=== PATIENT | male | born 1975 | race American Indian/Alaskan Native ===

== ENCOUNTER 2017-10-20 17:52 | Emergency (ER) | payer SELFPAY ==
--- NOTE | 2017-10-20 18:24 | ED PDOC ---
Arrival/HPI - General Chief Complaint: Alcohol Ingestion Time Seen by Provider: 10/20/17 17:55 Historian: Patient - History of Present Illness Narrative History of Present Illness (Text): 10/20/17 18:21 A 42 year old male brought into the emergency department by EMS for alcohol intoxication. Patient states "I drank too much today". He denies any somatic complaints at this time. Patient denies any trauma, injury, fever, chills, nausea, vomiting, abdominal pain, chest pain, shortness of breath, suicidal ideation, homicidal ideation or any other complaints. Time/Duration: Prior to Arrival Past Medical History - Provider Review Nursing Documentation Reviewed: Yes - Infectious Disease Hx of Infectious Diseases: None - Psychiatric Hx Substance Use: No Family/Social History - Physician Review Nursing Documentation Reviewed: Yes Family/Social History: No Known Family HX Smoking Status: Light Smoker < 10 Cigarettes Daily Hx Alcohol Use: Yes Frequency of alcohol use: Socially Hx Substance Use: No Allergies/Home Meds Allergies/Adverse Reactions: Allergies No Known Allergies Allergy (Verified 10/20/17 18:00) Home Medications: Home Meds Medication Instructions Recorded Confirmed No Known Home Med 10/20/17 10/20/17 Review of Systems - Physician Review All systems were reviewed & negative as marked: Yes - Review of Systems Constitutional: Normal. absent: Fevers, Night Sweats Respiratory: absent: SOB Cardiovascular: absent: Chest Pain Gastrointestinal: absent: Abdominal Pain, Nausea, Vomiting Psychiatric: absent: Suicidal Ideation (/Homicidal ideation) Physical Exam Vital Signs Reviewed: Yes Vital Signs Temp Pulse Resp BP Pulse Ox 10/20/17 22:00 97.7 F 10/20/17 19:10 74 19 119/77 95 10/20/17 18:01 65 20 149/105 H 97 Temperature: Afebrile Blood Pressure: Hypertensive Pulse: Regular Respiratory Rate: Normal Appearance: Positive for: Comfortable, Other (Patient smells of alcohol) Pain Distress: None Mental Status: Positive for: Alert and Oriented X 3 Finger Stick Blood Glucose: 83 - Systems Exam Head: Present: Atraumatic, Normocephalic Pupils: Present: PERRL Extroacular Muscles: Present: EOMI Conjunctiva: Present: Normal Mouth: Present: Moist Mucous Membranes Neck: Present: Normal Range of Motion Respiratory/Chest: Present: Clear to Auscultation, Good Air Exchange. No: Respiratory Distress, Accessory Muscle Use Cardiovascular: Present: Regular Rate and Rhythm, Normal S1, S2. No: Murmurs Abdomen: Present: Normal Bowel Sounds. No: Tenderness, Distention, Peritoneal Signs Back: Present: Normal Inspection Upper Extremity: Present: Normal Inspection. No: Cyanosis, Edema Lower Extremity: Present: Normal Inspection. No: Edema Neurological: Present: GCS=15, CN II-XII Intact, Speech Normal Skin: Present: Warm, Dry, Normal Color. No: Rashes Psychiatric: Present: Alert, Oriented x 3, Normal Insight, Normal Concentration Medical Decision Making ED Course and Treatment: 10/20/17 18:21 Impression: A 42 year old male brought in for alcohol intoxication. Patient denies any complaints. Plan: -- Observe for sobriety -- Reassess and disposition Progress Notes: In emergency room patient has a finger stick of 83. Will monitor for sobriety. 10/20/17 21:56 Patient has been resting comfortably. He has no complaints. Will sign out to Dr. Harris to monitor for sobriety and reevaluate - Scribe Statement The provider has reviewed the documentation as recorded by the Scribe Paola Conn Provider Scribe Attestation: All medical record entries made by the Scribe were at my direction and personally dictated by me. I have reviewed the chart and agree that the record accurately reflects my personal performance of the history, physical exam, medical decision making, and the department course for this patient. I have also personally directed, reviewed, and agree with the discharge instructions and disposition. Disposition/Present on Arrival - Present on Arrival Any Indicators Present on Arrival: No History of DVT/PE: No History of Uncontrolled Diabetes: No Urinary Catheter: No History of Decub. Ulcer: No History Surgical Site Infection Following: None - Disposition Have Diagnosis and Disposition been Completed?: Yes Diagnosis: Alcohol abuse Disposition Time: 22:00 Patient Problems: Current Active Problems Problem Status Onset Alcohol abuse Acute Condition: FAIR Referrals: PCP,NO [Primary Care Provider] - Follow up with primary Forms: [employer] (Slovak)
[2017-10-20 22:00] VITALS: TEMP 97.7
--- NOTE | 2017-10-20 23:05 | ED PDOC ---
Physical Exam Vital Signs Reviewed: Yes Vital Signs Temp Pulse Resp BP Pulse Ox 10/20/17 22:00 97.7 F 10/20/17 19:10 74 19 119/77 95 10/20/17 18:01 65 20 149/105 H 97 Temperature: Afebrile Blood Pressure: Hypertensive Pulse: Regular Respiratory Rate: Normal Appearance: Positive for: Well-Appearing, Comfortable Pain Distress: None Mental Status: Positive for: Alert and Oriented X 3 Finger Stick Blood Glucose: 83 Medical Decision Making ED Course and Treatment: 10/20/17 22:04: Patient was endorsed to me by Dr. Rainey. Pending sobriety. Will re-evaluate and disposition. - Scribe Statement The provider has reviewed the documentation as recorded by the Rohithibe Geri Hampton Provider Scribe Attestation: All medical record entries made by the Scribe were at my direction and personally dictated by me. I have reviewed the chart and agree that the record accurately reflects my personal performance of the history, physical exam, medical decision making, and the department course for this patient. I have also personally directed, reviewed, and agree with the discharge instructions and disposition. Disposition/Present on Arrival - Present on Arrival Any Indicators Present on Arrival: No History of DVT/PE: No History of Uncontrolled Diabetes: No Urinary Catheter: No History of Decub. Ulcer: No History Surgical Site Infection Following: None - Disposition Diagnosis: Alcohol abuse Patient Problems: Current Active Problems Problem Status Onset Alcohol abuse Acute Condition: [facility]IR Referrals: PCP,NO [Primary Care Provider] - Follow up with primary Forms: [employer] ([place])
[2017-10-21 04:59] VITALS: BP 160/84; PULSE 75; RESP 17; O2SAT 96
== END 2017-10-21 06:51 | disposition home or self-care (01) ==
LOC: ED 17:52 → MERGE 17:52 → ED 10-21 06:51
DX: F10.10 Alcohol abuse, uncomplicated (principal); Y90.9 Presence of alcohol in blood, level not specified